=== PATIENT | female | born 1970 | race Two or more races ===

== ENCOUNTER 2017-07-18 13:02 | Outpatient (CLI) | payer OTHER | END 2017-07-18 13:06 | disposition home or self-care (01) | LOC: SONOGRAMA 13:02 → MAMO-SONO 14:15 | DX: M79.661 Pain in right lower leg (principal) ==

== ENCOUNTER 2018-07-31 13:29 | Emergency (ER) | payer OTHER ==
[~2018-07-31] VITALS: Ht 162.6 cm; Wt 70.3 kg
[2018-07-31] MEDS ORDERED: ATENOLOL25 MG (13:49)
[2018-07-31] MEDS ORDERED: LEVSIN/SL0.125 MG SL (19:06)
[2018-07-31] MEDS ORDERED: PEPCID AC20 MG PO (19:06)
== END 2018-07-31 19:32 | disposition home or self-care (01) ==
LOC: ER 13:29
DX: K21.9 Gastro-esophageal reflux disease without esophagitis (principal)

== ENCOUNTER 2021-08-03 00:14 | Emergency (ER) | payer OTHER ==
[~2021-08-03] VITALS: Ht 160 cm; Wt 61.7 kg
[~2021-08-03 00:14] MED LIST: ATENOLOL25 MG; LEVSIN/SL0.125 MG SL; PEPCID AC20 MG PO
== END 2021-08-03 07:07 ==
LOC: ER 00:14
DX: R00.2 Palpitations (principal); R07.89 Other chest pain; R42 Dizziness and giddiness; I10 Essential (primary) hypertension

== ENCOUNTER 2024-01-07 10:06 | Emergency (ER) | payer OTHER ==
[~2024-01-07] VITALS: Ht 149.9 cm; Wt 59.0 kg
[2024-01-07] MEDS ORDERED: SIMVASTATIN80 MG (10:11)
[2024-01-07] MEDS ORDERED: LOSARTAN POTASS50 MG PO (10:11)
[2024-01-07] MEDS ORDERED: HYOSCYAMINE SULFATE 0.125 MG TAB.SUBL SL ONE (10:45)
[2024-01-07] MEDS ORDERED: FAMOTIDINE/PF 20 MG/2 ML VIAL IV PUSH ONE (10:45)
[2024-01-07] MEDS ORDERED: MAG HYDROX/ALUMINUM HYD/SIMETH 30 ML BLIST.PACK PO ONE (10:45)
[2024-01-07 10:57] LABS: HEMATOCRIT 40.3 % (36.0-45.00); HEMOGLOBIN 13.5 g/dL (12.0-15.00); MEAN CELL VOLUME 87.6 fL (80.00-100.00); MEAN CORPUSCULAR HEMOGLOBIN 29.4 pg (27.00-32.0); MEAN CORPUSCULAR HGB CONC 33.6 g/dl (32.0-36.0); PLATELET COUNT 257 K/uL (150-450); RED CELL DISTRIBUTION WIDTH 14.1 % (11.5-14.5)
[2024-01-07 11:40] LABS: CALCIUM 9.6 mg/dL (8.5-10.1); CREATININE SERUM 0.68 mg/dL (0.55-1.02); GFR 90.17; POTASSIUM 4.11 mEq/L (3.5-5.1)
== END 2024-01-07 16:21 | disposition home or self-care (01) ==
LOC: ER 10:07
PROVIDERS: Emergency Medicine
DX: R10.9 Unspecified abdominal pain (principal); I10 Essential (primary) hypertension; K21.9 Gastro-esophageal reflux disease without esophagitis

== ENCOUNTER 2024-09-04 19:31 | Emergency (ER) | payer OTHER ==
[~2024-09-04] VITALS: Ht 152.4 cm; Wt 60.8 kg
[~2024-09-04 19:31] MED LIST changes: +LOSARTAN POTASS50 MG PO; +SIMVASTATIN80 MG
[2024-09-04] MEDS ORDERED: ENALAPRILAT DIHYDRATE 1.25 MG/ML VIAL IV ONE ×2 (21:45→22:20)
[2024-09-04] MEDS ORDERED: ACETAMINOPHEN 500 MG GEL..CAP PO ONE (22:52)
[2024-09-04 22:53] LABS: BASO % 0.4 % (0.1-1.2); EOS # 0.07 (0.04-0.54); EOS % 0.6 % (0.7-7.0); HEMATOCRIT 39.7 % (34.1-44.9); HEMOGLOBIN 13.2 g/dL (11.2-15.7); LYMPH # 2.98 (1.18-3.74); LYMPH % 23.6 % (19.3-53.1); MONO # 0.79 (0.24-0.82); MONO % 6.3 % (4.7-12.5); NEUT % 68.8 % (34.0-71.1); PLATELET COUNT 274 K/uL (163-369); RED BLOOD COUNT 4.71 M/uL (3.93-5.22); RED CELL DISTRIBUTION WIDTH 13.3 % (11.6-14.4)
[2024-09-04 23:09] LABS: POTASSIUM 4.85 mEq/L (3.5-5.1)
[2024-09-04 23:17] LABS: ALBUMIN 4.1 gm/dL (3.4-5.0); BILIRUBIN TOTAL 0.42 mg/dL (0.3-1.2); CALCIUM 10.1 mg/dL (8.5-10.1); CREATININE SERUM 0.72 mg/dL (0.55-1.02); GFR 84.1; GLOBULINA 3.7 G/DL (2.4-3.5); TOTAL PROTEIN 7.8 gm/dL (6.4-8.2)
== END 2024-09-05 00:59 ==
LOC: ER 19:31
PROVIDERS: Emergency Medicine
DX: R07.89 Other chest pain (principal); I10 Essential (primary) hypertension

== ENCOUNTER 2024-11-20 07:12 | Outpatient (CLI) | payer OTHER | END 2024-11-20 07:13 | disposition home or self-care (01) | LOC: NUCLEAR 07:12 | DX: I20.9 Angina pectoris, unspecified (principal) ==

== ENCOUNTER 2025-01-12 08:40 | Outpatient (CLI) | payer OTHER | END 2025-01-12 08:41 | disposition home or self-care (01) | LOC: NUCLEAR 08:40 | DX: R07.89 Other chest pain (principal) ==

== ENCOUNTER → 2025-03-09 09:34 | Outpatient (CLI) | payer OTHER | END | disposition home or self-care (01) | LOC: NUCLEAR 09:34 | DX: M85.80 Other specified disorders of bone density and structure, unspecified site (principal); M81.0 Age-related osteoporosis without current pathological fracture ==